=== PATIENT | female | born 1950 | race Hispanic/Latino ===

== ENCOUNTER 2017-10-31 12:47 | Outpatient (CLI) | payer MEDICARE ==
--- NOTE | 2017-10-31 13:19 | RAD ---
LEFT HAND THREE VIEWS: History: Pain, stiffness, and contraction of the left fourth and fifth digits and thumb. FINDINGS/IMPRESSION: No acute fracture, dislocation, or bony destruction or periosteal reaction is seen. Degenerative stone ges are present. POS: [facility]
== END 2017-10-31 12:48 | disposition home or self-care (01) ==
LOC: MADRAD 12:47
PROVIDERS: ATTEND Physician Assistant
DX: M79.642 Pain in left hand (principal); M19.042 Primary osteoarthritis, left hand